=== PATIENT | female | born 1990 | race African-American/Black ===

== ENCOUNTER 2020-06-12 19:10 | Emergency (ER) | payer OTHER ==
[~2020-06-12] VITALS: Ht 160 cm; Wt 84.8 kg
[2020-06-12 19:26] VITALS: BP 130/83
--- NOTE | 2020-06-12 19:27 | NUR ---
ED Nurse Note: walked in to ed c/o right sided toothache accompanied by headache onset yesterday after chipping her tooth while eating apple. vss, nad, aaox4, ambulatory, ermd at bedside
[2020-06-12] MEDS ORDERED: PENICILLIN V P500 MG PO (19:30)
[2020-06-12] MEDS ORDERED: IBUPROFEN600 M1 ORAL (19:30)
[2020-06-12] MEDS ORDERED: Acetaminophen 500mg (ES) tab ORAL ONE (19:30)
[2020-06-12] MEDS ORDERED: Lidocaine 2% Visc 15ml soln ORAL ONE (19:30)
[2020-06-12] MEDS ORDERED: LIDOCAINE VISC100 ML ORAL (19:30)
--- NOTE | 2020-06-12 19:39 | Emergency Room Report ---
History of Present Illness General Chief Complaint: Toothache Source: Patient Present Illness HPI Patient is a 30-year-old female presents for increased left lower dental pain. Reports of increased pain for the past 1 day. Denies any recent trauma. States that she been having pain worse with eating. Pain reportedly was severe. She denies taking medications at home initially however subsequently stated that she took Tylenol and ibuprofen. 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 Patient History Past Medical History: see triage record : 1 Para: 1 Reviewed Nursing Documentation: PMH: Agreed; PSxH: Agreed Nursing Documentation-PMH Past Medical History: No Stated History Review of Systems All Other Systems: negative except mentioned in HPI Physical Exam Vital Signs Date Time Temp Pulse Resp B/P (MAP) Pulse Ox O2 Delivery O2 Flow Rate FiO2 06/12/20 19:18 97.9 74 16 133/89 (104) 99 Room Air General Appearance: well appearing, no apparent distress, alert, GCS 15 Head: normocephalic, atraumatic ENT: hearing grossly normal, normal voice Neck: full range of motion, supple Respiratory: no respiratory distress, speaking full sentences Cardiovascular #1: normal inspection, regular rate, rhythm Gastrointestinal: normal inspection, normal bowel sounds, non tender, soft Musculoskeletal: normal inspection, no calf tenderness Neurologic: alert, motor strength/tone normal, 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 Differential diagnosis include was not limited to dental fracture, caries, abscess among others. Patient does not have any evidence of trismus or any palpable abscess. Patient does appear to have a cracked back tooth. Patient was advised to follow-up with a dentist. She was given topical medications for pain as well as ibuprofen prescription. Does not appear to require narcotics at this time. She was advised to return if worse. The patient is advised to follow up with dentist in 1-2 days. Patient is advised to return if any worsening condition or if any changes in status that are concerning. This report is dictated with [email or web address] fine unhairer software which may occasionally lead to discrepancies related to use of this software. Last Vital Signs Date Time Temp Pulse Resp B/P (MAP) Pulse Ox O2 Delivery O2 Flow Rate FiO2 06/12/20 19:26 97.9 77 16 130/83 99 Room Air Status: improved Disposition: HOME, SELF-CARE Condition: Stable Scripts Lidocaine HCl 2% Viscous (Lidocaine HCl 2% Viscous) 100 Ml Solution 15 ML ORAL QID, #120 ML Prov: Reza Tee MD 06/12/20 Penicillin V Potassium* (PENVK*) 500 Mg Tablet 500 MG PO Q6H, #28 TAB 0 Refills Prov: Reza Tee MD 06/12/20 Ibuprofen* (MOTRIN*) 600 Mg Tablet 600 MG ORAL Q8H PRN for FOR PAIN, #30 TAB 0 Refills Prov: Reza Tee MD 06/12/20 Patient Instructions: Dental Pain Additional Instructions: Follow up with your dentist. Rinse your mouth several times a day. Reza Tee MD Jun 12, 2020 19:39
[2020-06-12 19:40] VITALS: BP 133/80
--- NOTE | 2020-06-12 19:40 | NUR ---
ER DISCHARGE NOTE: Patient is cleared to be discharged per ERMD, pt is aox4, on room air, with stable vital signs. pt was given dc and prescription instructions, pt was able to verbalize understanding, pt id band removed without complications. pt is able to ambulate with steady gait. pt took all belongings.
== END 2020-06-12 19:40 | disposition home or self-care (01) ==
LOC: EMR 19:25
DX: K02.9 Dental caries, unspecified (principal); K08.89 Other specified disorders of teeth and supporting structures
CPT/HCPCS: 99282